=== PATIENT | male | born 1965 | race Caucasian/White ===

== ENCOUNTER 2020-07-06 12:57 | Inpatient (IN) | payer OTHER ==
[~2020-07-06] VITALS: Ht 177.8 cm; Wt 90.0 kg
[2020-07-06 14:30] LABS: COVID AG,FIA SOURCE NASOPHARYNGEAL
[2020-07-06 15:14] LABS: BASOPHILS % (AUTO) 0.5 % (0.0-2.0); EOSINOPHILS % (AUTO) 1.6 % (1.0-6.0); HEMATOCRIT 46.3 % (41-53); HEMOGLOBIN 15.6 g/dL (13.5-17.5); LYMPHOCYTES # (AUTO) 2.3 K/uL (1.0-4.8); LYMPHOCYTES % (AUTO) 25.6 % (22.0-44.0); MEAN CORPUSCULAR HEMOGLOBIN 32.9 pg (26.0-34.0); MEAN CORPUSCULAR HGB CONC 33.6 G/dL (31.0-37.0); MEAN CORPUSCULAR VOLUME 98 fL (80-100); MONOCYTES # (AUTO) 0.9 K/uL (0.1-1.0); MONOCYTES % (AUTO) 9.6 % (2.0-9.0); NEUTROPHILS # (AUTO) 5.7 K/uL (1.8-7.7); NEUTROPHILS % (AUTO) 62.7 % (40.0-70.0); PLATELET COUNT (AUTO) 263 K/uL (150-450); RED BLOOD CELL COUNT(AUTO) 4.73 MIL/uL (4.50-5.90); RED CELL DISTRIBUTION WIDTH 13.4 % (11.5-14.5)
[2020-07-06 15:23] LABS: ANION GAP 7 mmol/L (8-16); CALCIUM, TOTAL 9.5 mg/dL (8.8-10.5); CARBON DIOXIDE 28 mmol/L (22-29); CHLORIDE 102 mmol/L (98-107); CREATININE 0.72 mg/dL (0.60-1.30); GLOMERULAR FILTR. RATE CALC > 60 mL/min (>60); GLUCOSE,RANDOM 105 mg/dL (70-110); POTASSIUM 3.8 mmol/L (3.5-5.1); SODIUM SERUM 137 mmol/L (136-145); UREA NITROGEN, BLOOD 8 mg/dL (7-18)
[2020-07-06 15:29] LABS: ALANINE AMINOTRANSFERASE 58 U/L (12-78); ALBUMIN 4.2 g/dL (3.4-5.0); ALKALINE PHOSPHATASE 134 U/L (46-116); ASPARTATE AMINOTRANSFERASE 35 U/L (15-37); BILIRUBIN,TOTAL 0.6 mg/dL (0.1-1.0); TOTAL PROTEIN, SERUM 8.7 g/dL (6.4-8.2)
[2020-07-06 15:30] LABS: LACTIC ACID 1.1 mmol/L (0.4-2.0)
[2020-07-06 15:34] LABS: PROTHROMBIN TIME 10.5 SEC (9.4-11.6)
[2020-07-06] MEDS ORDERED: 0.9% SODIUM CHLORIDE 10 ML SYRINGE IVP PRN (18:15)
[2020-07-06] MEDS ORDERED: ACETAMINOPHEN 325 MG TABLET PO PRN ×2 (18:15→19:15)
[2020-07-06 18:55] VITALS: BP 129/61
[2020-07-06] MEDS ORDERED: ONDANSETRON HCL 4 MG/2 ML VIAL IVP PRN (19:15)
[2020-07-06] MEDS ORDERED: MAGNESIUM HYDROXIDE SUSPENSION 30 ML UDCUP PO PRN (19:15)
[2020-07-06] MEDS: DOCUSATE SODIUM 100 MG CAPSULE PO SCH (20:20)
[2020-07-07 04:00] VITALS: BP 126/77
[2020-07-07 07:32] VITALS: BP 108/71
[2020-07-07] MEDS: DOCUSATE SODIUM 100 MG CAPSULE PO SCH ×2 (08:29→20:21)
[2020-07-07] MEDS: HEPARIN SODIUM,PORCINE 5,000 UNITS/ML VIAL SQ SCH ×3 (08:29→15:31)
[2020-07-07] MEDS: RisperiDONE 0.5 MG TABLET PO SCH ×2 (11:15→20:21)
[2020-07-07] MEDS ORDERED: MAGNESIUM OXIDE 400 MG TABLET PO ONE (13:00)
[2020-07-07 19:43] VITALS: BP 124/63
[2020-07-08] MEDS: HEPARIN SODIUM,PORCINE 5,000 UNITS/ML VIAL SQ SCH ×4 (00:25→23:53)
[2020-07-08 05:30] VITALS: BP 116/70
[2020-07-08 08:03] LABS: APPEARANCE,URINE CLEAR (CLEAR); GLUCOSE, URINE (UA) NEGATIVE (NEGATIVE); KETONES,URINE NEGATIVE (NEGATIVE); LEUKOCYTE ESTERASE ,URINE NEGATIVE (NEGATIVE); NITRATE,URINE NEGATIVE (NEGATIVE); OCCULT BLOOD,URINE NEGATIVE (NEGATIVE); PROTEIN,URINE NEGATIVE (NEGATIVE)
[2020-07-08] MEDS: DOCUSATE SODIUM 100 MG CAPSULE PO SCH ×2 (08:05→19:56)
[2020-07-08 08:06] LABS: BILIRUBIN,URINE PRELIM. POSITIVE (NEGATIVE)
[2020-07-08 08:08] LABS: AMPHET/METH SCREEN,URINE NEGATIVE (NEGATIVE); BARBITURATE SCREEN, URINE NEGATIVE (NEGATIVE); BENZODIAZEPINES SCREEN,URINE NEGATIVE (NEGATIVE); CANNABINOID SCREEN,URINE NEGATIVE (NEGATIVE); COCAINE SCREEN,URINE NEGATIVE (NEGATIVE); METHADONE SCREEN, URINE NEGATIVE (NEGATIVE); OPIATE SCREEN,URINE NEGATIVE (NEGATIVE)
[2020-07-08 08:09] LABS: PHENCYCLIDINE SCREEN,URINE NEGATIVE (NEGATIVE)
[2020-07-08 08:15] VITALS: BP 114/56
[2020-07-08] MEDS: RisperiDONE 0.5 MG TABLET PO SCH ×2 (08:22→19:56)
[2020-07-08 15:13] VITALS: BP 118/74
[2020-07-08 19:41] VITALS: BP 118/73
[2020-07-09 04:37] VITALS: BP 123/74
[2020-07-09 07:40] VITALS: BP 106/75
[2020-07-09] MEDS: DOCUSATE SODIUM 100 MG CAPSULE PO SCH ×2 (07:59→20:14)
[2020-07-09] MEDS: RisperiDONE 0.5 MG TABLET PO SCH (07:59)
[2020-07-09] MEDS: HEPARIN SODIUM,PORCINE 5,000 UNITS/ML VIAL SQ SCH ×2 (07:59→16:30)
[2020-07-09 15:17] VITALS: BP 124/68
[2020-07-09 19:39] VITALS: BP 118/67
[2020-07-09] MEDS: RisperiDONE 1 MG TABLET PO SCH (20:14)
[2020-07-10] MEDS: HEPARIN SODIUM,PORCINE 5,000 UNITS/ML VIAL SQ SCH ×4 (00:28→23:46)
[2020-07-10 04:42] VITALS: BP 127/71
[2020-07-10 08:25] VITALS: BP 134/74
[2020-07-10] MEDS: RisperiDONE 1 MG TABLET PO SCH ×2 (08:26→20:11)
[2020-07-10] MEDS: DOCUSATE SODIUM 100 MG CAPSULE PO SCH ×2 (08:26→20:11)
[2020-07-10 19:48] VITALS: BP 111/73
[2020-07-11 08:13] VITALS: BP 121/72
[2020-07-11] MEDS: HEPARIN SODIUM,PORCINE 5,000 UNITS/ML VIAL SQ SCH ×2 (08:40→15:27)
[2020-07-11] MEDS: RisperiDONE 1 MG TABLET PO SCH ×2 (08:40→20:00)
[2020-07-11] MEDS: DOCUSATE SODIUM 100 MG CAPSULE PO SCH ×2 (08:40→20:00)
[2020-07-11 19:38] VITALS: BP 137/68
[2020-07-12] MEDS: HEPARIN SODIUM,PORCINE 5,000 UNITS/ML VIAL SQ SCH ×2 (00:04→07:53)
[2020-07-12 05:12] VITALS: BP 134/89
[2020-07-12] MEDS: RisperiDONE 1 MG TABLET PO SCH (07:49)
[2020-07-12] MEDS: DOCUSATE SODIUM 100 MG CAPSULE PO SCH (07:49)
[2020-07-12 09:21] VITALS: BP 142/67
== END 2020-07-12 10:08 | DRG 605 ==
LOC: EMS 13:03 → 6N 18:33
PROVIDERS: ADMIT Internal Medicine; ATTEND Internal Medicine
DX: S00.93XA Contusion of unspecified part of head, initial encounter (principal); X58.XXXA Exposure to other specified factors, initial encounter; F29 Unspecified psychosis not due to a substance or known physiological condition; R74.8 Abnormal levels of other serum enzymes; Z20.828 Contact with and (suspected) exposure to other viral communicable diseases; F15.90 Other stimulant use, unspecified, uncomplicated; Z90.49 Acquired absence of other specified parts of digestive tract
CPT/HCPCS: 70450; 83605; 87426; 93005; J1644; 36415-L1; 36415-TC; 71045-TC; 81003-TC; U0003